=== PATIENT | female | born 1985 | race Native Hawaiian/Other Pacific Islander ===

== ENCOUNTER 2019-10-01 08:18 | Outpatient (CLI) | payer BC | END 2019-10-01 22:26 | disposition home or self-care (01) | LOC: MRI 08:18 | DX: M17.11 Unilateral primary osteoarthritis, right knee (principal) ==

== ENCOUNTER 2023-04-10 08:50 | Outpatient (CLI) | payer OTHER | END 2023-04-10 18:53 | disposition home or self-care (01) | LOC: US 08:50 | PROVIDERS: ATTEND Family Medicine | DX: N39.3 Stress incontinence (female) (male) (principal) | CPT/HCPCS: 51798 ==